=== PATIENT | female | born 1980 | race African-American/Black ===

== ENCOUNTER 2018-06-12 12:28 | Emergency (ER) | payer BC, SELFPAY ==
[2018-06-12 13:28] LABS: #Basophils 0.1 thou/uL (0.0-0.2); #Eosinphils 0.2 thou/uL (0.0-0.7); #Lymphocytes 2.9 thou/uL (1.20-3.40); #Monocytes 0.6 thou/uL (0.11-0.59); #Neutrophils 4.3 thou/uL (1.40-6.50); %Basophils 0.7 % (0.0-1.0); %Eosinophils 2.5 % (0.0-10.0); %Lymphocytes 35.6 % (21.0-51.0); %Monocytes 7.2 % (0.0-10.0); Hemoglobin 9.7 g/dL (12.0-16.0); Mean Corpuscular HGB CONC 31.5 g/dL (32.0-36.0); Mean Corpuscular Hemoglobin 24.8 pg (27.0-31.0); Mean Corpuscular Volume 78.8 fL (78.0-98.0); Mean Platelet Volume 6.8 fL (7.4-10.4); Platelet Count 493 thou/uL (130-400); RBC Distribution Width 15.4 % (11.5-14.5)
[2018-06-12 13:50] LABS: ALT (SGPT) 16 U/L (8-55); AST (SGOT) 14 U/L (5-34); Albumin 3.7 g/dL (3.5-5.0); Alkaline Phosphatase 130 U/L (40-150); Anion Gap 9 mmol/L (10-20); BUN (Urea Nitrogen) 10 mg/dL (7.0-18.7); Bilirubin, Total Less than 0.2 mg/dL (0.2-1.2); Calc. Creatinine Clearance 0 mL/min (70-130); Carbon Dioxide 26 mmol/L (22-29); Chloride 106 mmol/L (98-107); Estimated GFR-MDRD Greater than 90; Glucose 82 mg/dL (70-105); Lipase 134 U/L (8-78); Potassium 4.3 mmol/L (3.5-5.1); Protein, Total 6.7 g/dL (6.0-8.3); Sodium 137 mmol/L (136-145)
--- NOTE | 2018-06-12 14:24 | RAD ---
PORTABLE CHEST: HISTORY: Syncope. COMPARISON: None. FINDINGS: Heart size and mediastinum are within normal limits. Lungs are clear of infiltrates. No significant bony findings. IMPRESSION: No active intrathoracic disease. POS: [facility]
--- NOTE | 2018-06-14 12:04 | EKG ---
Test Reason : ER INDICATION Blood Pressure : / mmHG Vent. Rate : 095 BPM Atrial Rate : 095 BPM P-R Int : 116 ms QRS Dur : 092 ms QT Int : 354 ms P-R-T Axes : 028 014 000 degrees QTc Int : 444 ms Normal sinus rhythm Incomplete right bundle branch block Nonspecific T wave abnormality Abnormal ECG Confirmed by MERY BOONE DO ([id number]), assistant editor KB POND ([id number]) on 06/14/2018 12:04:09 PM Referred By: LINDA Confirmed By:MERY BOONE DO
== END 2018-06-12 14:31 | disposition home or self-care (01) ==
LOC: ERS 12:28
DX: R55 Syncope and collapse (principal); F17.210 Nicotine dependence, cigarettes, uncomplicated
CPT/HCPCS: 36415; 71045; 80053; 83690; 84484; 85025; 93005

== ENCOUNTER 2024-12-01 11:14 | Outpatient (CLI) | payer OTHER, BC | END 2024-12-01 11:15 | disposition home or self-care (01) | LOC: BICRAD 11:14 | PROVIDERS: ATTEND Family Medicine | DX: M25.532 Pain in left wrist (principal) ==